=== PATIENT | female | born 1980 | race Hispanic/Latino ===

== ENCOUNTER 2017-05-25 14:32 | Outpatient (CLI) | payer SELFPAY | END 2017-05-25 14:33 | disposition home or self-care (01) | LOC: BICRAD 14:32 | PROVIDERS: ATTEND Family Medicine | DX: M25.559 Pain in unspecified hip (principal) | CPT/HCPCS: 72170 ==

== ENCOUNTER 2018-09-04 13:13 | Outpatient (CLI) | payer OTHER ==
--- NOTE | 2018-09-04 14:31 | ULT ---
EXAM: OB ultrasound COMPARISON: None HISTORY: female. Evaluate size, dates, and anatomy. TECHNIQUE: Multiplanar grayscale and color Doppler transabdominal sonographic images are obtained. FINDINGS: There is a single intrauterine gestation in transverse presentation with head to the matern al left. Cardiac Doppler demonstrates heart tones with a heart rate of 144 beats per minute. The placenta is located anteriorly without evidence of placenta previa. There is a normal daniel unt of amniotic fluid with an amniotic fluid index of 16.5 centimeters. The cervical length based on transabdominal imaging measures 5 centimeters. biometry measurements: BPD 5.25 cm -- 22 weeks HC 19.89 cm -- 22 weeks 1 day AC 18.09 cm -- 23 weeks FL 3.85 cm -- 22 weeks 3 days The estimated gestational age by ultrasound is 22 weeks 3 days with an ANATOLIY on01/05/2019. Gestational age by the last menstrual period is 22 weeks 1 day. The estimated weight by ultrasound is 516 g (1 pound, 2 ounces). This represents 67 percentile for weight. A 4 chambered heart is visualized. The cerebellum, visualized portions of the spine, kidneys, u rinary bladder, and cord insertion demonstrate a normal sonographic appearance. A three-vessel cord is not visualized, but there is flow on either side of the urinary bladder sugges ting a three-vessel cord.. No anomalies are seen. IMPRESSION: 1. Single intrauterine gestation in cephalic presentation with heart tones documented. Estimat ed gestational age by ultrasound is 22 weeks 3 days. 2. Estimated weight is 516 g (1 pound, 2 ounces). 3. Amniotic fluid index is 16.54 centimeters.
== END 2018-09-04 13:14 | disposition home or self-care (01) ==
LOC: BICULT 13:13
PROVIDERS: ATTEND Family Medicine
DX: O09.522 Supervision of elderly multigravida, second trimester (principal); Z3A.22 22 weeks gestation of pregnancy
CPT/HCPCS: 76805

== ENCOUNTER 2018-12-25 10:05 | Inpatient (IN) | payer MEDICAID, OTHER, SELFPAY ==
[~2018-12-25 10:05] MED LIST: Lidocaine 2% MPF 10 ML AMP (For Epidural Use) ONE
[2018-12-25 10:46] VITALS: BMI 27.8
[2018-12-25] MEDS ORDERED: Butorphanol Tartrate 1 MG/ML VIAL SLOW IVP PRN (11:17)
[2018-12-25] MEDS ORDERED: Carboprost 250 MCG/ML AMP IM PRN (11:17)
[2018-12-25] MEDS ORDERED: Misoprostol 200 MCG TAB PR PRN (11:17)
[2018-12-25] MEDS ORDERED: Ibuprofen 800 MG TAB PO PRN (11:17)
[2018-12-25] MEDS ORDERED: HYDROcodone/Acetaminophen 5/325 mg Tablet PO PRN ×3 (11:17→17:11)
[2018-12-25] MEDS ORDERED: Diphenoxylate HCl/Atropine Tablet PO PRN (11:17)
[2018-12-25] MEDS ORDERED: Methylergonovine 0.2 MG/ML VIAL IM PRN (11:17)
[2018-12-25] MEDS ORDERED: Promethazine HCl 25 MG/ML VIAL IM PRN ×4 (11:17→22:17)
[2018-12-25] MEDS ORDERED: Ondansetron PF 4 MG/2 ML Vial IVP PRN ×3 (11:17→17:11)
[2018-12-25] MEDS ORDERED: hydrALAZINE 20 MG/ML VIAL SLOW IVP PRN ×2 (11:17→17:11)
[2018-12-25] MEDS ORDERED: NS / Oxytocin 40 units/1000ml 1,000 ML IV PRN (11:17)
[2018-12-25] MEDS ORDERED: Lidocaine 1% (PF) 30 ML VIAL SC PRN (11:17)
[2018-12-25] MEDS: Lactated Ringer's 1,000 ML IV SCH ×2 (11:20→13:11)
[2018-12-25] MEDS ORDERED: NS w/ Oxytocin 10 units 500 ML IV SCH ×2 (11:30)
[2018-12-25 12:21] LABS: Hemoglobin 13.9 g/dL (12.0-16.0); Mean Corpuscular HGB CONC 34.2 g/dL (32.0-36.0); Mean Corpuscular Hemoglobin 33.2 pg (27.0-31.0); Mean Corpuscular Volume 97.2 fL (78.0-98.0); Mean Platelet Volume 9.9 fL (7.4-10.4); Platelet Count 172 thou/uL (130-400); RBC Distribution Width 13.1 % (11.5-14.5); Red Blood Cell (RBC) Count 4.17 mill/uL (4.20-5.40); White Blood Cell (WBC) Count 8.9 thou/uL (4.8-10.8)
[2018-12-25] MEDS ORDERED: Fentanyl 4 mcg/Bup 0.1% Cadd 100 ML ONE (12:29)
[2018-12-25 13:03] LABS: HBSAg Index 0.12 S/CO (0-0.99); Hep B Surf Ag Non-Reactive S/CO (NonReactive); Syphilis Antibody Nonreactive (Nonreactive); Syphilis Antibody Index 0.04 S/CO (<1.00 Non-Reactive)
[2018-12-25] MEDS ORDERED: Acetaminophen 325 MG TAB PO PRN (13:09)
[2018-12-25] MEDS ORDERED: Naloxone HCl 0.4 mg/ml Vial IVP PRN ×2 (13:09)
[2018-12-25] MEDS ORDERED: Lactated Ringer's 500 ML IV PRN (13:09)
[2018-12-25] MEDS ORDERED: diphenhydrAMINE 50 MG/ML VIAL IVP PRN (13:09)
[2018-12-25] MEDS ORDERED: ePHEDrine/0.9% NaCl/PF SYRINGE 50 mg/10 ml SLOW IVP PRN (13:09)
[2018-12-25] MEDS ORDERED: Fentanyl 4 mcg/Bupivacaine 0.1% Cassette 100 ML EPIDURAL SCH (13:15)
[2018-12-25] MEDS ORDERED: Communication Order-Pharmacy FS SCH (13:15)
[2018-12-25] MEDS ORDERED: Benzocaine-Menthol 82.5 ML CAN TOP PRN (17:11)
[2018-12-25] MEDS ORDERED: Milk Of Magnesia 30 ML UDCUP PO PRN (17:11)
[2018-12-25] MEDS ORDERED: Preparation H Ointment 28 GM TUBE PR PRN (17:11)
[2018-12-25] MEDS ORDERED: Adacel (T-DAP) 0.5 ML SYRINGE IM ONE (17:11)
[2018-12-25] MEDS ORDERED: Bisacodyl 10 MG SUPP PR PRN (17:11)
[2018-12-25] MEDS ORDERED: diphenhydrAMINE 25 MG CAP PO PRN (17:11)
[2018-12-25] MEDS ORDERED: Lanolin Ointment 7 GM TUBE TOP PRN (17:11)
[2018-12-25] MEDS ORDERED: NS / Oxytocin 40 units/1000ml 1,000 ML IV SCH (17:15)
[2018-12-25] MEDS: Ibuprofen 800 MG TAB PO SCH (19:33)
[2018-12-25] MEDS: HYDROcodone/Acetaminophen 5/325 mg Tablet PO PRN (19:34)
[2018-12-25] MEDS ORDERED: Methylergonovine 0.2 MG/ML VIAL ONE (20:41)
[2018-12-25] MEDS ORDERED: Fentanyl 100 MCG/2 ML VIAL ONE (20:51)
--- NOTE | 2018-12-25 21:09 | PDOC.EVN ---
Event Note - Event Note Event Note: Called to room for a deviated uterus. straight cath 700cc. evacuated 900cc with bimanual exam. Feels like retained placenta in uterine fundus. Unable to remove manually. Pt given a second iv line. 1ltr bolus of crystaloid. 0.[address] Gruber notified. Recommend exam under anesthesia and post d &C. OR notified. Dr Gruber will be performing. Total qbl since delivery 1200cc. starting h/h 13.9/40.6. bsus demonstrates what appears to be calicified tissue in the fundus of the uterus and reaccumulating blood in the cervix and lower uterine segment. Not actively bleeding vaginally at this time.
[2018-12-25] MEDS ORDERED: metroNIDAZOLE 500 MG/100 ML BAG ONE (21:43)
[2018-12-25] MEDS ORDERED: Misoprostol 200 MCG TAB ONE (21:43)
[2018-12-25] MEDS ORDERED: Misoprostol 200 MCG TAB PR SCH (21:45)
[2018-12-25] MEDS ORDERED: Promethazine HCl 25 MG/ML VIAL SLOW IVP PRN (22:17)
[2018-12-25] MEDS ORDERED: Ondansetron HCl/PF 4 MG/2 ML Vial IVP PRN (22:17)
[2018-12-25] MEDS ORDERED: Lactated Ringer's 1,000 ML IV SCH (22:45)
--- NOTE | 2018-12-26 01:27 | OP ---
DATE OF PROCEDURE: 12/25/2018 PREOPERATIVE DIAGNOSIS: hemorrhage secondary to retained products of conception/placental fragments. POSTOPERATIVE DIAGNOSIS: hemorrhage secondary to retained products of conception/placental fragments. PROCEDURES PERFORMED: 1. dilation and curettage. 2. Manual exploration of the uterus. ANESTHESIA: General. DESCRIPTION OF PROCEDURE: After informed consent was obtained from the patient, she was taken to the operating room, where general anesthesia was administered. She was placed in a dorsal lithotomy position. She was prepped and draped in usual sterile fashion. The uterus was first explored manually. A large, approximately 11 x 4 x 3 cm fragment of placental tissue was manually removed. The uterus was explored further, and no other large sections of placenta were noted. A blunt curette was then used to curette all four quadrants of the uterus with some small fragments of decidua and placental tissue returned. She had significant improvement in her bleeding, and procedure was terminated. Cytotec 800 mcg were placed rectally at the end of the procedure. She was taken to Recovery in stable condition. ESTIMATED BLOOD LOSS: 200. Job ID: [id number]
[2018-12-26] MEDS: HYDROcodone/Acetaminophen 5/325 mg Tablet PO PRN (03:20)
[2018-12-26] MEDS ORDERED: Misoprostol 200 MCG TAB PO SCH (04:00)
[2018-12-26] MEDS: CEFAZOLIN 2 GM in Premix Bag 1 BAG IVPB SCH ×4 (05:21→21:25)
[2018-12-26 05:28] LABS: Hemoglobin 11.7 g/dL (12.0-16.0); Mean Corpuscular HGB CONC 35.1 g/dL (32.0-36.0); Mean Corpuscular Hemoglobin 34.5 pg (27.0-31.0); Mean Corpuscular Volume 98.3 fL (78.0-98.0); Mean Platelet Volume 9.5 fL (7.4-10.4); Platelet Count 148 thou/uL (130-400); RBC Distribution Width 12.9 % (11.5-14.5); White Blood Cell (WBC) Count 18.2 thou/uL (4.8-10.8)
[2018-12-26] MEDS: metroNIDAZOLE 500 MG in Premix Bag 1 BAG IVPB SCH ×4 (06:15→22:14)
[2018-12-26] MEDS: Ibuprofen 800 MG TAB PO SCH ×3 (13:48→21:24)
[2018-12-26] MEDS: Docusate Calcium (SURFAK) 240 MG CAP PO SCH ×3 (13:48→21:25)
[2018-12-26] MEDS: Ferrous Sulfate 325 MG TAB PO SCH ×2 (13:49→19:12)
[2018-12-26] MEDS: Prenatal Vitamin 1 TAB PO SCH (13:50)
[2018-12-26] MEDS ORDERED: FLU VACC QS2019-20(6MOS UP)/PF 60 MCG/0.5 ML SYRINGE IM ONE (14:15)
[2018-12-27] MEDS: HYDROcodone/Acetaminophen 5/325 mg Tablet PO PRN (01:08)
[2018-12-27] MEDS: metroNIDAZOLE 500 MG in Premix Bag 1 BAG IVPB SCH (05:16)
[2018-12-27] MEDS: Ibuprofen 800 MG TAB PO SCH (05:16)
[2018-12-27] MEDS: Ferrous Sulfate 325 MG TAB PO SCH (07:55)
[2018-12-27] MEDS: CEFAZOLIN 2 GM in Premix Bag 1 BAG IVPB SCH (07:55)
[2018-12-27] MEDS: Prenatal Vitamin 1 TAB PO SCH (07:56)
[2018-12-27] MEDS: Docusate Calcium (SURFAK) 240 MG CAP PO SCH (07:56)
[2018-12-27] MEDS ORDERED: CEFAZOLIN 2 GM in Premix Bag 1 BAG IVPB SCH (08:00)
[2018-12-27 08:27] VITALS: BP 103/64; TEMP 97.4
== END 2018-12-27 12:15 | disposition home or self-care (01) | DRG 769 ==
LOC: L&D 10:05 → 3SW 12-26 11:21
PROVIDERS: ADMIT Family Medicine; ATTEND Family Medicine
PROC: 10D17Z9 Manual Extraction of Products of Conception, Retained, Via Natural or Artificial Opening (ICD-10-PCS; principal; 2018-12-25)
DX: O72.2 Delayed and secondary postpartum hemorrhage (principal)
CPT/HCPCS: 36415; 51702; 85027; 86780; 86850; 86900; 86901; 87340; 88305; J0690; J2001; J2210; J3010

== ENCOUNTER 2019-02-02 09:38 | Outpatient (CLI) | payer OTHER ==
--- NOTE | 2019-02-02 11:41 | RAD ---
LEFT WRIST 3 VIEWS: Date: 02/02/19 HISTORY: Left wrist pain. No known injuries. FINDINGS/IMPRESSION: No fracture, dislocation, or bony destruction identified. POS: [facility]
== END 2019-02-02 09:39 | disposition home or self-care (01) ==
LOC: BICRAD 09:38
PROVIDERS: ATTEND Chiropractor
DX: M25.532 Pain in left wrist (principal)

== ENCOUNTER → 2023-03-08 | Outpatient (CLI) | payer OTHER | LOC: PET 11:45 | PROVIDERS: ATTEND Nurse Practitioner Family | DX: R91.1 Solitary pulmonary nodule (principal); J18.9 Pneumonia, unspecified organism | CPT/HCPCS: 78816; A9552 ==